=== PATIENT | female | born 1950 | race Caucasian/White ===

== ENCOUNTER → 2016-11-25 | Outpatient (CLI) | payer MEDICARE ==
[2016-11-25 09:58] LABS: ALBUMIN 3.7 GM/DL (3.2-5.2); ALBUMIN/GLOBULIN RATIO 1.32 (1.00-1.93); ALKALINE PHOSPHATASE 95 U/L (45-117); ALT/SGPT 26 U/L (12-78); ANION GAP 9 MEQ/L (8-16); AST/SGOT 14 U/L (15-37); BILIRUBIN,TOTAL 0.3 MG/DL (0.2-1.0); BLOOD UREA NITROGEN 16 MG/DL (7-18); CALCIUM LEVEL 8.9 MG/DL (8.8-10.2); CARBON DIOXIDE LEVEL 32 MEQ/L (21-32); CHLORIDE LEVEL 103 MEQ/L (98-107); CHOLESTEROL LEVEL 208 MG/DL (<200); FREE T4 1.03 NG/DL (0.76-1.46); GLOMERULAR FILTRATION RATE > 60.0 (>45); GLUCOSE, FASTING 125 MG/DL (80-110); POTASSIUM SERUM 3.8 MEQ/L (3.5-5.1); SODIUM LEVEL 144 MEQ/L (136-145); TOTAL PROTEIN 6.5 GM/DL (6.4-8.2); TRIGLYCERIDES LEVEL 153 MG/DL (<150)
== END ==
LOC: M WUC 08:07
PROVIDERS: ATTEND Emergency Medicine
DX: I10 Essential (primary) hypertension (principal); E78.2 Mixed hyperlipidemia; E03.9 Hypothyroidism, unspecified

== ENCOUNTER → 2016-11-27 | Outpatient (CLI) | payer MEDICARE | LOC: M WUC 10:12 | PROVIDERS: ATTEND Emergency Medicine | DX: R73.01 Impaired fasting glucose (principal) ==

== ENCOUNTER → 2017-02-10 | Outpatient (CLI) | payer MEDICARE ==
[~2017-02-10] VITALS: Ht 165.1 cm; Wt 96.2 kg
[~2017-02-10] MED LIST: ASPI1TAB PO; CALTCHW5 PO; CENT1TAB PO; LISI20TA PO; NS 1,000 ML IV SCH; PROPOFOL 200 MG/20 ML VIAL As Ordered ONE; VITA100037 PO; VITA500T3 PO
--- NOTE | 2017-02-10 08:49 | ROOR ---
Patient Name: Josey Martinez Procedure Date: 02/10/2017 8:00 AM Date of : 1950 Age: 66 Room: [facility] Gender: Female Note Status: Finalized Procedure: Colonoscopy Indications: Screening for colorectal malignant neoplasm Providers: Jordy Menjivar MD Referring MD: ROSA OMALLEY MD Requesting Provider: Medicines: Monitored Anesthesia Care Complications: No immediate complications. Procedure: Pre-Anesthesia Assessment: - Prior to the procedure, a History and Physical was performed, and patient medications and allergies were reviewed. The patient is competent. The risks and benefits of the procedure and the sedation options and risks were discussed with the patient. All questions were answered and informed consent was obtained. Patient identification and proposed procedure were verified by the physician, the nurse and the anesthesiologist in the endoscopy suite. Mental Status Examination: alert and oriented. Airway Examination: normal oropharyngeal airway and neck mobility. Respiratory Examination: clear to auscultation. CV Examination: normal. Prophylactic Antibiotics: The patient does not require prophylactic antibiotics. Prior Anticoagulants: The patient has taken aspirin, last dose was day of procedure. ASA Grade Assessment: II - A patient with mild systemic disease. After reviewing the risks and benefits, the patient was deemed in satisfactory condition to undergo the procedure. The anesthesia plan was to use monitored anesthesia care (MAC). Immediately prior to administration of medications, the patient was re-assessed for adequacy to receive sedatives. The heart rate, respiratory rate, oxygen saturations, blood pressure, adequacy of pulmonary ventilation, and response to care were monitored throughout the procedure. The physical status of the patient was re-assessed after the procedure. The Colonoscope was introduced through the anus and advanced to the cecum, identified by appendiceal orifice and ileocecal valve. The colonoscopy was technically difficult and complex due to multiple diverticula in the colon, poor bowel prep, restricted mobility of the colon and a tortuous colon. Successful completion of the procedure was aided by applying abdominal pressure. The patient tolerated the procedure well. The quality of the bowel preparation was adequate to identify polyps 6 mm and larger in size. Findings: The perianal and digital rectal examinations were normal. Multiple small and large-mouthed diverticula were found in the entire colon. There was no evidence of diverticular bleeding. A 5 to 7 mm polyp was found in the proximal transverse colon. The polyp was sessile. The polyp was removed with a hot snare. Resection and retrieval were complete. Estimated blood loss: none. No additional abnormalities were found on retroflexion. Impression: - Moderate diverticulosis in the entire examined colon. There was no evidence of diverticular bleeding. - One 5 to 7 mm polyp in the proximal transverse colon, removed with a hot snare. Resected and retrieved. Recommendation: - Discharge patient to home (ambulatory). - High fiber diet indefinitely. - Repeat colonoscopy in 5 years for surveillance. Jordy Menjivar MD Jordy Menjivar MD 02/10/2017 8:48:52 AM This report has been signed electronically. Number of Addenda: 0 Note Initiated On: 02/10/2017 8:00 AM Estimated Blood Loss: Estimated blood loss: none.
[2017-02-10 09:05] VITALS: BP 127/70
== END | disposition home or self-care (01) ==
LOC: M OPP 07:27
PROVIDERS: ATTEND Surgery
DX: Z12.11 Encounter for screening for malignant neoplasm of colon (principal); D12.3 Benign neoplasm of transverse colon; K57.30 Diverticulosis of large intestine without perforation or abscess without bleeding; I10 Essential (primary) hypertension; R23.3 Spontaneous ecchymoses; M19.90 Unspecified osteoarthritis, unspecified site; Z79.82 Long term (current) use of aspirin; Z79.899 Other long term (current) drug therapy; Z80.0 Family history of malignant neoplasm of digestive organs; Z87.891 Personal history of nicotine dependence

== ENCOUNTER → 2017-02-16 | Outpatient (REF) | payer MEDICARE ==
[~2017-02-16] MED LIST changes: -NS 1,000 ML IV SCH; -PROPOFOL 200 MG/20 ML VIAL As Ordered ONE
== END ==
LOC: M LAB REF 16:51
PROVIDERS: ATTEND Emergency Medicine
DX: N39.0 Urinary tract infection, site not specified (principal)

== ENCOUNTER → 2017-06-10 | Outpatient (CLI) | payer MEDICARE ==
[~2017-06-10] MED LIST changes: -VITA100037 PO; +VITA100067 PO
[2017-06-10 10:08] LABS: ALBUMIN 3.6 GM/DL (3.2-5.2); ALBUMIN/GLOBULIN RATIO 1.29 (1.00-1.93); ALKALINE PHOSPHATASE 87 U/L (45-117); ALT/SGPT 30 U/L (12-78); ANION GAP 10 MEQ/L (8-16); AST/SGOT 17 U/L (15-37); BILIRUBIN,TOTAL 0.4 MG/DL (0.2-1.0); BLOOD UREA NITROGEN 14 MG/DL (7-18); CALCIUM LEVEL 9.9 MG/DL (8.8-10.2); CARBON DIOXIDE LEVEL 28 MEQ/L (21-32); CHLORIDE LEVEL 106 MEQ/L (98-107); CHOLESTEROL LEVEL 200 MG/DL (<200); CREATININE FOR GFR 0.73 MG/DL (0.55-1.02); GLOMERULAR FILTRATION RATE > 60.0 (>45); GLUCOSE, FASTING 116 MG/DL (80-110); POTASSIUM SERUM 3.7 MEQ/L (3.5-5.1); SODIUM LEVEL 144 MEQ/L (136-145); TOTAL PROTEIN 6.4 GM/DL (6.4-8.2); TRIGLYCERIDES LEVEL 182 MG/DL (<150)
== END ==
LOC: M WUC 08:08
PROVIDERS: ATTEND Emergency Medicine
DX: E78.2 Mixed hyperlipidemia (principal); R73.01 Impaired fasting glucose; I10 Essential (primary) hypertension

== ENCOUNTER → 2018-02-09 | Outpatient (CLI) | payer MEDICARE ==
[2018-02-09 09:30] LABS: ALBUMIN 3.7 GM/DL (3.2-5.2); ALBUMIN/GLOBULIN RATIO 1.19 (1.00-1.93); ALKALINE PHOSPHATASE 95 U/L (45-117); ALT/SGPT 36 U/L (12-78); ANION GAP 8 MEQ/L (8-16); AST/SGOT 18 U/L (7-37); BILIRUBIN,TOTAL 0.4 MG/DL (0.2-1.0); BLOOD UREA NITROGEN 18 MG/DL (7-18); CALCIUM LEVEL 9.4 MG/DL (8.8-10.2); CARBON DIOXIDE LEVEL 28 MEQ/L (21-32); CHLORIDE LEVEL 106 MEQ/L (98-107); CHOLESTEROL LEVEL 213 MG/DL (<200); CREATININE FOR GFR 0.78 MG/DL (0.55-1.30); GLOMERULAR FILTRATION RATE > 60.0 (>45); GLUCOSE, FASTING 131 MG/DL (70-100); HDL CHOLESTEROL 60 MG/DL (>40); LDL CHOLESTEROL 127.6 MG/DL (<100); NON-HDL-C 153 MG/DL; POTASSIUM SERUM 4.1 MEQ/L (3.5-5.1); SODIUM LEVEL 142 MEQ/L (136-145); TOTAL PROTEIN 6.8 GM/DL (6.4-8.2); TRIGLYCERIDES LEVEL 127 MG/DL (<150)
[2018-02-09 10:03] LABS: ESTIMATED AVERAGE GLUCOSE 143 MG/DL (60-110); HEMOGLOBIN A1c 6.6 %
== END ==
LOC: M WUC 08:22
DX: I10 Essential (primary) hypertension (principal); E78.2 Mixed hyperlipidemia; R73.01 Impaired fasting glucose
CPT/HCPCS: 80053

== ENCOUNTER → 2018-07-01 | Outpatient (CLI) | payer MEDICARE | LOC: M WHC 08:59 | DX: Z12.31 Encounter for screening mammogram for malignant neoplasm of breast (principal) | CPT/HCPCS: 77067 ==

== ENCOUNTER → 2018-09-25 | Outpatient (CLI) | payer MEDICARE ==
[2018-09-25 15:07] LABS: BLOOD UREA NITROGEN 20 MG/DL (7-18); CALCIUM LEVEL 9.6 MG/DL (8.8-10.2); CARBON DIOXIDE LEVEL 27 MEQ/L (21-32); CHLORIDE LEVEL 103 MEQ/L (98-107); CHOLESTEROL LEVEL 220 MG/DL (<200); GLOMERULAR FILTRATION RATE > 60.0 (>45); GLUCOSE, FASTING 120 MG/DL (70-100); HDL CHOLESTEROL 53 MG/DL (>40); LDL CHOLESTEROL 136 MG/DL (<100); NON-HDL-C 167 MG/DL; POTASSIUM SERUM 4.2 MEQ/L (3.5-5.1); SODIUM LEVEL 139 MEQ/L (136-145); TRIGLYCERIDES LEVEL 155 MG/DL (<150)
[2018-09-25 15:17] LABS: HEMOGLOBIN A1c 7.3 %
== END ==
LOC: M WUC 08:07
PROVIDERS: ATTEND Physician Assistant Medical
DX: I10 Essential (primary) hypertension (principal); E11.9 Type 2 diabetes mellitus without complications; E78.2 Mixed hyperlipidemia

== ENCOUNTER → 2019-01-29 | Outpatient (CLI) | payer MEDICARE ==
[~2019-01-29] MED LIST changes: -ASPI1TAB PO; +ASPI81TA26 PO
[2019-01-29 18:22] LABS: ALBUMIN 3.7 GM/DL (3.2-5.2); ALT/SGPT 32 U/L (12-78); BILIRUBIN,TOTAL 0.4 MG/DL (0.2-1.0); BLOOD UREA NITROGEN 20 MG/DL (7-18); CALCIUM LEVEL 9.5 MG/DL (8.8-10.2); CARBON DIOXIDE LEVEL 30 MEQ/L (21-32); CHLORIDE LEVEL 105 MEQ/L (98-107); CHOLESTEROL LEVEL 155 MG/DL (<200); CHOLESTEROL RISK RATIO 3.039 (<5); CREATININE FOR GFR 0.89 MG/DL (0.55-1.30); GLOMERULAR FILTRATION RATE > 60.0 (>45); GLUCOSE, FASTING 134 MG/DL (70-100); HDL CHOLESTEROL 51 MG/DL (>40); LDL CHOLESTEROL 71 MG/DL (<100); NON-HDL-C 104 MG/DL; POTASSIUM SERUM 3.8 MEQ/L (3.5-5.1); SODIUM LEVEL 141 MEQ/L (136-145); TRIGLYCERIDES LEVEL 165 MG/DL (<150)
[2019-01-29 18:50] LABS: HEMOGLOBIN A1c 6.9 %
[2019-01-29 19:12] LABS: MALB URINE SIEMENS 29.7 MG/L; MAU/CREAT RATIO 10.8 MCG/MG (0.0-30.0)
== END ==
LOC: M WUC 08:03
PROVIDERS: ATTEND Physician Assistant Medical
DX: E11.9 Type 2 diabetes mellitus without complications (principal); E78.2 Mixed hyperlipidemia

== ENCOUNTER 2019-04-12 07:15 | Emergency (ER) | payer MEDICARE ==
[~2019-04-12] VITALS: Ht 165.1 cm; Wt 102.7 kg
[~2019-04-12 07:15] MED LIST changes: +CYAN500T8 PO; -LISI20TA PO; +LISI20TA18 PO; -VITA500T3 PO
[2019-04-12] MEDS ORDERED: ASPIRIN 81 MG CHEW TABLET PO ONE (07:45)
[2019-04-12] MEDS ORDERED: METF500T13 PO (07:48)
[2019-04-12] MEDS ORDERED: LISINOPRIL 20 MG TAB PO ONE (08:00)
[2019-04-12] MEDS ORDERED: NITROGLYCERIN 0.4 MG SUBL TABLET SL PRN (08:00)
[2019-04-12] MEDS ORDERED: hydroCHLOROthiazide 12.5 MG CAPSULE PO ONE (08:00)
[2019-04-12] MEDS ORDERED: CRAN450T4 PO (08:04)
[2019-04-12 08:10] VITALS: BP 199/96
[2019-04-12 08:28] LABS: BASO % 0.5 % (0.0-1.0); EOS # 0.2 10^3/uL (0.0-0.50); EOS % 1.9 % (0.0-3.0); HEMATOCRIT 41.5 % (36.0-47.0); HEMOGLOBIN 13.9 g/dl (12.0-15.5); LYMPH # 2.1 10^3/uL (1.5-4.5); LYMPH % 25.1 % (24.0-44.0); MEAN CORPUSCULAR HGB CONC 33.5 g/dl (32.0-36.5); MEAN CORPUSCULAR VOLUME 92.4 fl (80.0-96.0); MONO # 0.6 10^3/uL (0.0-0.8); MONO % 7.6 % (0.0-5.0); NEUTROPHILS # 5.5 10^3/uL (1.8-7.7); NEUTROPHILS % 64.4 % (36.0-66.0); PLATELET COUNT, AUTOMATED 336 10^3/uL (150-450); RED BLOOD COUNT 4.49 10^6/uL (4.00-5.40); WHITE BLOOD COUNT 8.5 10^3/uL (4.0-10.0)
[2019-04-12 08:47] LABS: BLOOD UREA NITROGEN 13 MG/DL (7-18); CALCIUM LEVEL 9.2 MG/DL (8.8-10.2); CARBON DIOXIDE LEVEL 30 MEQ/L (21-32); CHLORIDE LEVEL 105 MEQ/L (98-107); CK-MB VALUE MASS < 1.0 NG/ML (<3.6); CPK CREATINE PHOSPHOKINASE 123 U/L (26-192); CREATININE FOR GFR 0.84 MG/DL (0.55-1.30); GLOMERULAR FILTRATION RATE > 60.0 (>45); GLUCOSE, FASTING 135 MG/DL (70-100); MB/CK RELATIVE INDEX 0.81 (< OR =4); POTASSIUM SERUM 3.6 MEQ/L (3.5-5.1); SODIUM LEVEL 141 MEQ/L (136-145); TROPONIN I < 0.02 NG/ML (< 0.10)
[2019-04-12] MEDS ORDERED: ISOVUE-370 76% 100ML VIAL (Q9967) As Ordered ONE (09:01)
--- NOTE | 2019-04-12 11:13 | REP ---
CT ANGIOGRAM CHEST: TECHNIQUE: Axial contrast enhanced images from the thoracic inlet to the upper abdomen using 100 mL Isovue 370 intravenous contrast material with multiplanar reformations. There is no CT evidence of pulmonary embolism. There is no thoracic aortic aneurysm or dissection. There is mild to moderate atherosclerotic calcification of the thoracic aorta. The heart is not enlarged. There is no pleural or pericardial effusion. There is no mediastinal, hilar or chest wall lymphadenopathy. There is a large hiatal hernia. Diffuse fibrotic changes are seen in the lungs. Small bullae is seen in the left lower lobe inferiorly. In the visualized portions of the upper abdomen, note is made of a diffuse fatty infiltration of the liver. There are gallstones in the gallbladder without evidence of a gallbladder wall edema. There are degenerative changes of the spine. IMPRESSION: No CT evidence of pulmonary embolism or aortic dissection. No acute pulmonary disease with diffuse fibrotic changes. Large hiatal hernia. Gallstones in the gallbladder. Electronically Signed by Jurgen Valdez MD 04/12/2019 01:17 P
[2019-04-12 12:30] LABS: CK-MB VALUE MASS < 1.0 NG/ML (<3.6); CPK CREATINE PHOSPHOKINASE 130 U/L (26-192); MB/CK RELATIVE INDEX 0.77 (< OR =4); TROPONIN I < 0.02 NG/ML (< 0.10)
[2019-04-12 13:00] VITALS: BP 141/77
[2019-04-12] MEDS ORDERED: PROT1TAB2 PO (13:11)
[2019-04-12] MEDS ORDERED: CARA1TAB6 PO (13:11)
[2019-04-12] MEDS ORDERED: GI COCKTAIL 50ML BTL(HYOSCYAMINE/MAALOX/LIDOCAINE VISCOUS)(1:3:1) PO ONE (13:15)
--- NOTE | 2019-04-12 14:47 | REP ---
Portable chest, single AP view with the patient upright, 08:06 a.m.: Comparison is 02/01/2015. The lung blount are clear. The cardiac size is normal. The tee, mediastinum, and skeletal structures are unremarkable. Impression: Negative portable chest. Electronically Signed by Jurgen Beasley MD 04/12/2019 08:21 A
--- NOTE | 2019-04-12 20:33 | ECGEPIP ---
[facility] - ED Test Date: 2019-04-12 Pat Name: ZO JOHNS Department: Room: - Gender: Female Receiving Worker: ESTELA : 1950 Requested By: Adonis Kahn Order Number: [id number] Reading MD: Adonis Kimball Measurements Intervals [place] Rate: 68 P: 7 MS: 200 QRS: QRSD: 153 T: 19 QT: 416 QTc: 443 Interpretive Statements SINUS RHYTHM LEFT BUNDLE BRANCH BLOCK NO PRIORS FOR COMPARISON Electronically Signed on 04-12-2019 20:32:48 EDT by Adonis Kimball
--- NOTE | 2019-04-12 20:38 | ECGEPIP ---
[facility] - ED Test Date: 2019-04-12 Pat Name: ZO JOHNS Department: Room: - Gender: Female Service Station Operator: TC : 1950 Requested By: Adonis Kahn Order Number: [id number] Reading MD: Adonis Kimball Measurements Intervals [place] Rate: 70 P: 4 DE: 195 QRS: QRSD: 163 T: 114 QT: 451 QTc: 490 Interpretive Statements SINUS RHYTHM LEFT BUNDLE BRANCH BLOCK SIMILAR TO PRIOR ON SAME DATE Electronically Signed on 04-12-2019 20:38:37 EDT by Adonis Kimball
== END 2019-04-12 13:36 | disposition home or self-care (01) ==
LOC: M ED 07:15
DX: K44.9 Diaphragmatic hernia without obstruction or gangrene (principal); K20.9 Esophagitis, unspecified; R07.89 Other chest pain; I44.7 Left bundle-branch block, unspecified; K80.20 Calculus of gallbladder without cholecystitis without obstruction; I51.9 Heart disease, unspecified; I10 Essential (primary) hypertension; E78.5 Hyperlipidemia, unspecified; K21.9 Gastro-esophageal reflux disease without esophagitis; E66.9 Obesity, unspecified; Z79.82 Long term (current) use of aspirin; Z79.899 Other long term (current) drug therapy
CPT/HCPCS: 71045; 71275; 80048; 82550; 82553; 84484; 85025; 93005; 93041; 94760; 99285; Q9967

== ENCOUNTER → 2019-07-30 | Outpatient (CLI) | payer MEDICARE ==
[~2019-07-30] MED LIST changes: +CARA1TAB6 PO; +CRAN450T4 PO; -LISI20TA18 PO; +LISI20TA19 PO; +METF500T13 PO; +PROT1TAB2 PO
[2019-07-30 13:21] LABS: BLOOD UREA NITROGEN 18 MG/DL (7-18); CALCIUM LEVEL 9.2 MG/DL (8.8-10.2); CARBON DIOXIDE LEVEL 31 MEQ/L (21-32); CHLORIDE LEVEL 105 MEQ/L (98-107); CREATININE FOR GFR 0.93 MG/DL (0.55-1.30); GLOMERULAR FILTRATION RATE > 60.0 (>45); GLUCOSE, FASTING 137 MG/DL (70-100); POTASSIUM SERUM 4.3 MEQ/L (3.5-5.1); SODIUM LEVEL 142 MEQ/L (136-145)
[2019-07-30 13:40] LABS: HEMOGLOBIN A1c 7.1 %
== END ==
LOC: M WUC 08:01
PROVIDERS: ATTEND Physician Assistant Medical
DX: E11.9 Type 2 diabetes mellitus without complications (principal)

== ENCOUNTER → 2019-08-23 | Outpatient (CLI) | payer MEDICARE ==
[~2019-08-23] MED LIST changes: +ASPI81TA85 PO; +LISI20TA20 PO; +PANT40TA3 PO; +ROSU10TA6 PO; +VITA200028 PO
[2019-08-23 14:51] LABS: HEMOGLOBIN A1c 7.1 %
== END ==
LOC: M LAB 13:54
PROVIDERS: ATTEND Orthopaedic Surgery
DX: M21.41 Flat foot [pes planus] (acquired), right foot (principal); R73.09 Other abnormal glucose

== ENCOUNTER 2019-08-30 06:26 | Inpatient (IN) | payer MEDICARE ==
--- NOTE | 2019-08-29 15:07 | HPE ---
DATE OF ADMISSION: 08/30/2019 INDICATION: Right flatfoot deformity. HISTORY OF PRESENT ILLNESS: Josey Martinez is a 69-year-old female with longstanding foot pain due to a flat foot deformity. She has undergone extensive conservative treatment by Dr. Estrella. She has continued to have pain and limitation after she had a discussion about the risks and benefits of flap foot reconstruction, written informed consent was obtained. The patient has obtained her medical clearance from her primary care physician. PAST MEDICAL HISTORY: Past medical history is notable for hypertension, [id number] diabetes, anxiety and high cholesterol. PAST SURGICAL HISTORY: Hysterectomy, hernia repair, wrist surgery. ALLERGIES: NO KNOWN DRUG ALLERGIES. MEDICATIONS: - Protonix - rosuvastatin - metformin - Lisinopril - hydrochlorothiazide - triamcinolone - vitamin D - Xanax - low dose aspirin - multivitamin - Carafate SOCIAL HISTORY: The patient does not smoke, abuse alcohol or illicit drugs. She is retired. REVIEW OF SYSTEMS: The patient denied neurologic, cardiac, abdominal or respiratory symptoms. Musculoskeletal: She has pain and swelling in the right foot. PHYSICAL EXAMINATION: Physical exam reveals a middle-aged female in no distress. Alert and oriented times three. Neurologic: Appropriate mood and affect. Cardiovascular: 2+ dorsalis pedis pulse. Pulmonary: Nonlabored breathing. Skin: Skin of the right foot is intact without open lesions. Musculoskeletal: The patient has increased hindfoot valgus with positive too many toes sign. She has flat foot when viewed from the side. She has pain and weakness along the post tib tendon. RADIOGRAPHY: Consistent with flat foot. ASSESSMENT/PLAN: Josey Martinez is a 69-year-old female with a right flat foot deformity. Plan will be to move forward with right flat foot reconstruction by Dr. Megan Estrella on 08/30/2019. She will need to spend the night in the hospital.
[~2019-08-30] VITALS: Ht 165.1 cm; Wt 98.0 kg
[2019-08-30] VITALS (8 sets, daily range): BP systolic 125–130; BP diastolic 57–75
[2019-08-30] MEDS ORDERED: LR 1,000 ML IV ONE (07:00)
[2019-08-30] MEDS ORDERED: ceFAZolin SOD 2 GM in IV 1 EA IV ONE (07:00)
[2019-08-30] MEDS ORDERED: MIDAZOLAM INJ 2 MG/2 ML VIAL (J2250) As Ordered ONE ×2 (08:02→09:22)
[2019-08-30] MEDS ORDERED: fentaNYL 100 MCG/2 ML INJECTION (J3010) As Ordered ONE (08:02)
[2019-08-30] MEDS ORDERED: fentaNYL 250 MCG/5 ML INJECTION (J3010) As Ordered ONE (09:22)
[2019-08-30] MEDS ORDERED: dexameTHASONE 4 MG/ML 1ML VIAL (J1100) As Ordered ONE (09:22)
[2019-08-30] MEDS ORDERED: PROPOFOL 200 MG/20 ML VIAL As Ordered ONE (09:22)
[2019-08-30] MEDS ORDERED: LIDOCAINE 2% INJ 100 MG/5 ML SDV (FOR ANES.) As Ordered ONE (09:22)
[2019-08-30] MEDS ORDERED: ROCURONIUM BROMIDE 50 MG/5 ML VIAL As Ordered ONE (09:22)
[2019-08-30] MEDS ORDERED: ePHEDrine SULFATE 25 MG/5 ML(5MG/ML) SYRINGE As Ordered ONE (09:55)
[2019-08-30] MEDS ORDERED: BUPIVACAINE HCL 0.5% 30 ML VIAL As Ordered ONE (11:17)
[2019-08-30] MEDS ORDERED: ONDANSETRON 4MG/2ML VIAL (J2405) As Ordered ONE ×2 (11:18→12:39)
[2019-08-30] MEDS ORDERED: SUGAMMADEX SODIUM 500 MG/5 ML VIAL (BRIDION) As Ordered ONE (11:19)
--- NOTE | 2019-08-30 12:19 | REP ---
RIGHT FOOT: 10 views. HISTORY: Flatfoot. Intraoperative imaging. 2 minutes 7 seconds of fluoroscopy time is reported. FINDINGS: A sequence of 10 last image hold fluoroscopically obtained spot radiographs document calcaneal osteotomy and fixation procedure. Electronically Signed by Pool Harmon MD 08/30/2019 05:39 P
[2019-08-30] MEDS ORDERED: fentaNYL 100 MCG/2 ML INJECTION (J3010) IV ONE (12:30)
[2019-08-30] MEDS ORDERED: MIDAZOLAM INJ 2 MG/2 ML VIAL (J2250) IV ONE (12:30)
[2019-08-30] MEDS ORDERED: PERCOCET 5MG/325MG TAB As Ordered ONE (12:39)
[2019-08-30] MEDS ORDERED: LR 1,000 ML IV SCH (12:45)
[2019-08-30] MEDS: fentaNYL 100 MCG/2 ML INJECTION (J3010) IV PRN ×4 (12:45→13:20)
[2019-08-30] MEDS: oxyCODONE 5MG TAB PO PRN ×2 (12:45→13:24)
[2019-08-30] MEDS ORDERED: ONDANSETRON 4MG/2ML VIAL (J2405) IV PRN ×2 (12:45→13:46)
[2019-08-30] MEDS ORDERED: GLUCOSE 4 GM CHEW TABLET PO PRN (13:00)
[2019-08-30] MEDS ORDERED: GLUCAGON FOR INJ 1 MG VIAL (J1610) SC PRN (13:00)
[2019-08-30] MEDS ORDERED: DEXTROSE 50% 50 ML SYRINGE IV PRN (13:00)
[2019-08-30] MEDS ORDERED: dexameTHASONE 10 MG/1 ML VIAL PRES.FREE (J1100) ONE (13:32)
[2019-08-30] MEDS ORDERED: ROPIvacaine 0.5% 30 ML INJECTION (J2795 PER 1MG) ONE (13:32)
[2019-08-30] MEDS: LR 1,000 ML IV SCH ×2 (13:46→20:47)
[2019-08-30] MEDS ORDERED: ACETAMINOPHEN TAB 650MG DOSE (2X325MG) PO PRN (13:46)
[2019-08-30] MEDS ORDERED: FLEET ENEMA PR PRN (13:46)
[2019-08-30 13:54] LABS: BASO % 0.2 % (0.0-1.0); EOS % 0.2 % (0.0-3.0); HEMATOCRIT 40.9 % (36.0-47.0); HEMOGLOBIN 13.1 g/dl (12.0-15.5); LYMPH # 1.1 10^3/uL (1.5-5.0); LYMPH % 11.6 % (24.0-44.0); MEAN CORPUSCULAR HEMOGLOBIN 30.6 pg (27.0-33.0); MEAN CORPUSCULAR VOLUME 95.6 fl (80.0-96.0); MONO # 0.1 10^3/uL (0.0-0.8); MONO % 1.4 % (0.0-5.0); NEUTROPHILS # 8.3 10^3/uL (1.5-8.5); NEUTROPHILS % 85.9 % (36.0-66.0); PLATELET COUNT, AUTOMATED 318 10^3/uL (150-450); RED BLOOD COUNT 4.28 10^6/uL (4.00-5.40); WHITE BLOOD COUNT 9.6 10^3/uL (4.0-10.0)
--- NOTE | 2019-08-30 14:03 | CR ---
DATE OF CONSULTATION: 08/30/2019 REASON FOR CONSULTATION: Medical management of chronic illnesses. CHIEF COMPLAINT: Right flat foot HISTORY OF PRESENT ILLNESS: This 69-year-old female with known history of hypertension, dyslipidemia, diabetes, nicotine addiction, history of recurrent right T8 zoster, recurrent urinary tract infections, B12 deficiency, restless legs, vitamin D deficiency, obesity, left distal radius and ulnar open fracture surgically repaired by Dr. David in 2010, admitted under orthopedic services due to right flat foot surgery, medical management requested postoperatively, medical clearance was provided by her primary care provider. At this time, the patient has no acute issues. She has no new complaints. Denies chest pain, pressure, tightness, fever, chills, nausea, vomiting, diarrhea, abdominal pain, dysuria, urgency, frequency, upper or lower extremity weakness, abnormal rashes, lymph node swelling. She recently returned from [place] with some postnasal drip, but otherwise is not taking any medications for that. PAST MEDICAL HISTORY: 1. Hypertension. 2. Hyperlipidemia. 3. Venous insufficiency. 4. Nicotine addiction, quit 3 years ago. 5. Recurrent right T8 zoster. 6. Diabetes. 7. Recurrent urinary tract infection (UTI). 8. B12 deficiency. 9. Vitamin D deficiency. 10. Restless legs. 11. Obesity. 12. Left distal radius and ulnar open fracture, surgical repair. ALLERGIES: No known drug allergies. PAST MEDICAL HISTORY: 1. Tubal ligation. 2. Hernia repair times two. 3. Total abdominal hysterectomy. 4. Bilateral salpingo-oophorectomy. 5. Colonoscopy, normal by Dr. Garcia in June 2004. 6. Left ulnar nerve wrapping secondary to pain by Dr. David in 2011. SOCIAL HISTORY: Previously smoked cigarettes, one pack per day for 20 years, quit 3 years ago. Rarely drinks alcohol, may be three per month. 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 Lives with her , four children. FAMILY HISTORY: Mother at age 78 with hypertension. Father was an alcoholic and of alcohol related disease at 61 years old. Brother had pulmonary fibrosis. Younger brother of alcohol related issues, chronic alcoholic. HOME MEDICATIONS: - aspirin 81 mg daily - Lisinopril/hydrochlorothiazide 20/25 one tablet daily - metformin 500 mg twice a day - multivitamin one tablet daily - Protonix 40 mg daily - rosuvastatin 10 mg daily - vitamin D2 2000 units daily REVIEW OF SYSTEMS: As per history of present illness. 12-point system otherwise negative. PHYSICAL EXAMINATION: VITAL SIGNS: Temperature 97.9, pulse 91, respiratory rate 16, blood pressure 133/64, 94% on 3 liters nasal cannula. GENERAL: Awake, alert, oriented providing history. No respiratory distress. The patient has no use of respiratory accessory muscles. No jugular venous distention (JVD). No thyromegaly. No cervical lymphadenopathy. Edentulous. LUNGS: Clear to auscultation. No wheezing, rales or rhonchi. HEART: S1, S2. Sinus rhythm. No murmurs, rubs or gallops. ABDOMEN: Soft, nontender, nondistended. Obese abdomen. Positive bowel sounds times four quadrants. EXTREMITIES: No cyanosis or clubbing. The patient has chronic venous insufficiency. Postoperative left foot. SKIN: Warm, dry, well perfused. [place] in color. LABORATORY DATA: Pending. ASSESSMENT AND PLAN: 69-year-old female admitted for observation for: status post right flat foot deformity, status post reconstructive surgery by Dr. Estrella on 08/30/2019. postoperative management including dvt prophylaxis, activity, pain control, bowel regimen per orthopedicu surgery. PT/OT for home safety evaluation in AM. Hypertension. Currently controlled. May resume home dose of Lisinopril 20 mg daily with holding parameters. Dyslipidemia. Continue on Crestor 10 mg daily. Obesity complicating her care. Body Mass Index (BMI) of 36. Vitamin D deficiency. On supplemental 2000 units daily, multivitamin. Probable obstructive sleep apnea. Obstructive sleep apnea protocol. Previous history of smoking. Nebulizer treatments as needed. Type 2 diabetes. On consistent carbohydrate diet, sliding scale. Fingersticks before food and nightly. Deep vein thrombosis (DVT) prophylaxis and postoperative antibiotics per orthopedic surgery. MTDD
[2019-08-30] MEDS: ROSUVASTATIN 10 MG TAB (CRESTOR) PO SCH (15:30)
[2019-08-30] MEDS: VITAMIN D 1,000 INTERNATIONAL UNITS TABLET PO SCH (15:31)
[2019-08-30] MEDS: PANTOPRAZOLE 40MG TAB (PROTONIX) PO SCH (15:31)
[2019-08-30] MEDS: lisinopriL 20 MG TAB PO SCH (15:31)
[2019-08-30] MEDS: MULTIVITAMINS/MINERALS THERAP 1 TAB PO SCH (15:31)
[2019-08-30 15:50] LABS: HEMOGLOBIN A1c 7.7 %
[2019-08-30] MEDS: MORPHINE 2 MG/ML 1ML VIAL (J2270) IV PRN ×3 (16:28→22:59)
[2019-08-30 16:40] LABS: CREATININE FOR GFR 0.99 MG/DL (0.55-1.30); GLOMERULAR FILTRATION RATE 59.4 (>45); POTASSIUM SERUM 3.9 MEQ/L (3.5-5.1)
[2019-08-30 16:41] LABS: MAGNESIUM LEVEL 1.8 MG/DL (1.8-2.4); THYROID STIMULATING HORMONE 2.15 uIU/ML (0.358-3.740)
[2019-08-30] MEDS: HumaLOG INSULIN (NovoLOG) PER UNIT SC SCH (17:29)
[2019-08-30] MEDS: ceFAZolin SOD 2 GM in IV 1 EA IV SCH (17:56)
[2019-08-30] MEDS ORDERED: HumaLOG INSULIN (NovoLOG) PER UNIT SC SCH (21:00)
[2019-08-31 01:12] VITALS: O2SAT 91
[2019-08-31] MEDS: ceFAZolin SOD 2 GM in IV 1 EA IV SCH (01:23)
[2019-08-31] MEDS: MORPHINE 2 MG/ML 1ML VIAL (J2270) IV PRN (02:05)
[2019-08-31] MEDS ORDERED: NORCO, ANEXSIA 5/325MG TABLET (HYDROcodone/ACETAMINOPHEN) PO PRN (03:15)
[2019-08-31] MEDS: NORCO, ANEXSIA 5/325MG TABLET (HYDROcodone/ACETAMINOPHEN) PO PRN ×2 (05:23→10:37)
[2019-08-31 06:00] VITALS: BP 122/68
[2019-08-31 07:58] VITALS: BP 120/60
[2019-08-31] MEDS ORDERED: ASPI81TA85 PO (07:59)
[2019-08-31] MEDS ORDERED: metFORMIN (GLUCOPHAGE) 500 MG TAB PO SCH (08:00)
[2019-08-31] MEDS: HumaLOG INSULIN (NovoLOG) PER UNIT SC SCH ×2 (08:06→11:59)
[2019-08-31 09:00] VITALS: BP 120/60
[2019-08-31] MEDS: lisinopriL 20 MG TAB PO SCH (09:00)
[2019-08-31] MEDS ORDERED: ASPIRIN 81 MG ENTERIC TAB PO SCH (09:00)
[2019-08-31] MEDS: ROSUVASTATIN 10 MG TAB (CRESTOR) PO SCH (09:05)
[2019-08-31] MEDS: VITAMIN D 1,000 INTERNATIONAL UNITS TABLET PO SCH (09:05)
[2019-08-31] MEDS: PANTOPRAZOLE 40MG TAB (PROTONIX) PO SCH (09:05)
[2019-08-31] MEDS: MULTIVITAMINS/MINERALS THERAP 1 TAB PO SCH (09:06)
[2019-08-31] MEDS: LR 1,000 ML IV SCH (12:00)
--- NOTE | 2019-08-31 14:09 | IPN ---
DATE: 08/31/2019 The patient's pain is 3/10 while she is lying down in bed. No issues overnight. The patient was anxious to go home today. VITAL SIGNS: Temperature 97.6, pulse 81, respiratory rate 17, blood pressure 120/60, 93% on room air. GENERAL: Awake, alert, oriented times three, answering questions appropriately. No jugular venous distention (JVD). No thyromegaly. No cervical lymphadenopathy. LUNGS: Clear to auscultation. No wheezing, rales or rhonchi. HEART: S1, S2. Sinus rhythm. ABDOMEN: Obese, soft, nontender, nondistended. EXTREMITIES: No pitting edema. Left foot bandaged. Skin warm, dry, well perfused. [place] in color. Distal pulses with dorsalis pedis noted. White count 9.6, hemoglobin 13, hematocrit 40, platelet count 318. Sodium 140, potassium 3.9, chloride 105, bicarb 28, BUN 17, creatinine 0.9, glucose 119. A1c is 7.7, glucose 174, calcium 9, magnesium 1.8, TSH 2.15. ASSESSMENT/PLAN: This is a 69-year-old female with history of diabetes and hypertension, chronic venous insufficiency who is status post surgical correction of her left foot. Per orthopedic surgery the patient may be discharged home. Pain management, deep vein thrombosis (DVT) prophylaxis and activity per orthopedic surgery. The patient may resume all of her home medications on discharge today with outpatient followup with her primary care physician within one week of discharge. KIM
--- NOTE | 2019-09-06 14:32 | DSES ---
DATE OF ADMISSION: 08/30/2019 DATE OF DISCHARGE: 08/31/2019 ATTENDING PHYSICIAN: Dr. Megan Estrella ADMISSION DIAGNOSIS: Right flatfoot deformity. OTHER DIAGNOSES: Hypertension. Diabetes, non-insulin dependent. Anxiety. Hyperlipidemia. DISCHARGE DIAGNOSIS: Right flatfoot deformity status post flatfoot reconstruction. OPERATION PERFORMED: Right flatfoot reconstruction. HISTORY: This is a 69-year-old female patient with progressively worsening longstanding right foot pain due to flatfoot deformity who has failed conservative treatment and elected for right flatfoot reconstruction with Dr. Estrella. HOSPITAL COURSE: The patient was admitted on the day of surgery and underwent a right flatfoot reconstruction, which was uneventful. She did well in the postoperative period and her hospital course was without complications. She was seen by physical therapy and will remain non-weightbearing on the right lower extremity per Dr. Estrella's instruction. Her pain was controlled on the day of discharge and she will use aspirin for deep vein thrombosis (DVT) prophylaxis per protocol. She will resume her preoperative medications and diet along with oral pain medication for pain control. She was given instructions to include to include, but not limited to, wound monitoring and activity limitations. She will followup in our office with Dr. Estrella in 10-14 days for surgical followup. Please refer to the medical record for further details,
--- NOTE | 2019-09-07 21:47 | RO ---
DATE OF PROCEDURE: 08/30/2019 PREPROCEDURE DIAGNOSIS: Right adult-acquired flatfoot deformity. POSTPROCEDURE DIAGNOSIS: Right adult-acquired flatfoot deformity. PROCEDURE: 1. Debridement and excision posterior tibial tendon. 2. Right flexor digitorum longus transfer to the navicular. 3. Right medializing calcaneal osteotomy. SURGEON: Megan Estrella MD DOCUMENTATION IMPROVEMENT SPECIALIST: SAUD Patterson ANESTHESIA: ESTIMATED BLOOD LOSS: Approximately 50 mL. COMPLICATIONS: None. CONDITION: Stable to recovery. INDICATIONS: Josey Martinez is a 69-year-old female who has had longstanding pain and deformity due to right adult-acquired flatfoot deformity. She has failed conservative measures. Risks and benefits of surgery were discussed with the patient in detail and include but are not limited to infection, damage to nerves and blood vessels, continued pain and stiffness, need for additional procedures. Informed consent was obtained preoperatively. DESCRIPTION OF PROCEDURE: Patient was met in the preoperative holding area where her right lower extremity was marked as the correct operative site. She was then taken to the post-anesthesia care unit (PACU) where she had a popliteal nerve block. From there, the patient was taken to the operating room where she was placed in the supine position on the operating room table. Bony prominences were well padded. A sterile tourniquet was applied to the right upper thigh. A chlorhexidine scrub was done to the right lower extremity. The patient received antibiotics within 60 minutes prior to incision. The right lower extremity was then prepped and draped in the normal sterile fashion. An official time-out was held where the correct patient, operative site and operative procedure were verified. Esmarch was used to exsanguinate the leg and tourniquet was inflated to 275 mmHg. An incision was made medially from the region of the medial malleolus, extending over the medial midfoot and first metatarsal. Posterior tibial tendon was identified and found to be significantly enlarged and tendinotic. The majority of the tendon was excised leaving a small stump of tissue. It was sent to pathology Next, the FDL tendon was identified in the floor of the posterior tibial tendon sheath. It was isolated down to the knot of Yossi. Crossing vessels were coagulated. The tendon was cut, and then a #2-0 FiberWire was used to whipstitch the tendon ends. At this point, C-arm was used to identify the appropriate position for bony tunnel to pass the FDL tendon through. A K-wire was placed and when appropriate position was found, it was reamed with a 5 mm reamer, which was the size of the tendon. The tendon was then passed through the bone tunnel into the navicular. At the end of the case, it was secured with a combination of #2-0 and #2 FiberWire. The plantar aspect was also sewn to the small stump of posterior tibial tendon that was remaining. After the FDL tendon had been isolated, attention was turned to the lateral aspect of the heel. An incision was made over the lateral tuberosity. A periosteal elevator was used to debride soft tissue off the lateral calcaneus in the region of osteotomy. I then marked my osteotomy sites using two K-wires. This location was found to be appropriate on lateral C-arm. Following this, the osteotomy was made with a 40 mm saw. The heel was then translated medially approximately 8-10 mm. It was held in place with two K-wires and then two 4.5 mm cannulated screws were placed across the osteotomy site. Radiographs were done in lateral and Jacques heel views and found to be satisfactory. At this point, my attention was turned back to the FDL transfer where, as stated previously, it was secured with the foot in slight plantar flexion and inversion using #2-0 and #2 FiberWire. Following this, all wounds were irrigated and closed using #3-0 Vicryl and #3-0 nylon. A well--padded dressing was applied in addition to a well-padded splint. The patient was extubated and transferred to the recovery room in stable condition. PLAN: The patient will be non-weightbearing in her right lower extremity. She will need to be non-weightbearing for 6 weeks. She will return in 1-2 weeks for splint change and cast placement. She will be on aspirin for deep vein thrombosis (DVT) prophylaxis.
== END 2019-08-31 12:20 | disposition home or self-care (01) | DRG 502 ==
LOC: M OR 06:26 → EDSTATUS 09:30 → M MS5PR 13:45
PROVIDERS: ADMIT Orthopaedic Surgery; ATTEND Orthopaedic Surgery
PROC: 0QBL0ZZ Excision of Right Tarsal, Open Approach (ICD-10-PCS; 2019-08-30)
PROC: 0LXV0ZZ Transfer Right Foot Tendon, Open Approach (ICD-10-PCS; principal; 2019-08-30 08:30)
DX: M21.41 Flat foot [pes planus] (acquired), right foot (principal); I10 Essential (primary) hypertension; E11.9 Type 2 diabetes mellitus without complications; R41.9 Unspecified symptoms and signs involving cognitive functions and awareness; E78.2 Mixed hyperlipidemia; Z79.899 Other long term (current) drug therapy; Z87.891 Personal history of nicotine dependence; E55.9 Vitamin D deficiency, unspecified; G25.81 Restless legs syndrome; E66.9 Obesity, unspecified; Z79.82 Long term (current) use of aspirin; Z68.36 Body mass index [BMI] 36.0-36.9, adult; G47.33 Obstructive sleep apnea (adult) (pediatric)

== ENCOUNTER → 2020-02-18 | Outpatient (CLI) | payer MEDICARE ==
[2020-02-18 16:27] LABS: ALBUMIN 3.7 GM/DL (3.2-5.2); ALT/SGPT 34 U/L (12-78); BILIRUBIN,TOTAL 0.5 MG/DL (0.2-1.0); BLOOD UREA NITROGEN 20 MG/DL (7-18); CALCIUM LEVEL 9.2 MG/DL (8.8-10.2); CARBON DIOXIDE LEVEL 30 MEQ/L (21-32); CHLORIDE LEVEL 102 MEQ/L (98-107); CHOLESTEROL LEVEL 140 MG/DL (<200); CHOLESTEROL RISK RATIO 2.545 (<5); CREATININE FOR GFR 0.91 MG/DL (0.55-1.30); GLOMERULAR FILTRATION RATE > 60.0 (>45); GLUCOSE, FASTING 135 MG/DL (70-100); HDL CHOLESTEROL 55 MG/DL (>40); LDL CHOLESTEROL 54 MG/DL (<100); NON-HDL-C 85 MG/DL; SODIUM LEVEL 141 MEQ/L (136-145); TOTAL PROTEIN 7.1 GM/DL (6.4-8.2); TRIGLYCERIDES LEVEL 157 MG/DL (<150)
[2020-02-18 16:37] LABS: HEMOGLOBIN A1c 7.6 %
[2020-02-19 10:49] LABS: MALB URINE SIEMENS 39.3 MG/L; MAU/CREAT RATIO 23.3 MCG/MG (0.0-30.0)
== END ==
LOC: M WUC 08:07
PROVIDERS: ATTEND Physician Assistant

== ENCOUNTER → 2020-02-27 | Outpatient (CLI) | payer MEDICARE | LOC: M WUC 14:15 | PROVIDERS: ATTEND Orthopaedic Surgery | DX: M96.0 Pseudarthrosis after fusion or arthrodesis (principal) ==

== ENCOUNTER → 2020-06-02 | Outpatient (CLI) | payer MEDICARE ==
[~2020-06-02] MED LIST changes: -ASPI81TA85 PO; +ASPI81TA86 PO; -LISI20TA19 PO; +LISI20TA35 PO; +PANT40TA29 PO; -PANT40TA3 PO
[2020-06-02 18:27] LABS: ALBUMIN 3.8 GM/DL (3.2-5.2); ALT/SGPT 25 U/L (12-78); BILIRUBIN,TOTAL 0.5 MG/DL (0.2-1.0); BLOOD UREA NITROGEN 18 MG/DL (7-18); CALCIUM LEVEL 10.1 MG/DL (8.8-10.2); CARBON DIOXIDE LEVEL 31 MEQ/L (21-32); CHLORIDE LEVEL 103 MEQ/L (98-107); CREATININE FOR GFR 0.94 MG/DL (0.55-1.30); GLOMERULAR FILTRATION RATE > 60.0 (>45); GLUCOSE, FASTING 149 MG/DL (70-100); POTASSIUM SERUM 3.8 MEQ/L (3.5-5.1); SODIUM LEVEL 138 MEQ/L (136-145)
[2020-06-02 18:35] LABS: HEMOGLOBIN A1c 6.8 %
== END ==
LOC: M WUC 08:02
PROVIDERS: ATTEND Physician Assistant
DX: E11.9 Type 2 diabetes mellitus without complications (principal); I10 Essential (primary) hypertension

== ENCOUNTER → 2020-09-30 | Outpatient (REF) | payer MEDICARE ==
[~2020-09-30] MED LIST changes: +CYAN500T14 PO; -CYAN500T8 PO
[2020-09-30 15:48] LABS: HEMOGLOBIN A1c 6.9 %
== END ==
LOC: M WUC 15:03
PROVIDERS: ATTEND Physician Assistant Medical
DX: E11.9 Type 2 diabetes mellitus without complications (principal)

== ENCOUNTER → 2022-10-06 | Outpatient (CLI) | payer MEDICARE ==
[~2022-10-06] MED LIST changes: -LISI20TA20 PO; +LISI20TA37 PO
[2022-10-06 19:16] LABS: HEMOGLOBIN A1c 6.9 % (4.0-6.0)
== END ==
LOC: M WUC 11:45
PROVIDERS: ATTEND Nurse Practitioner Family
DX: E11.9 Type 2 diabetes mellitus without complications (principal); Z79.84 Long term (current) use of oral hypoglycemic drugs

== ENCOUNTER → 2023-12-28 | Outpatient (CLI) | payer MEDICARE ==
[2023-12-28 12:34] LABS: ALBUMIN 3.6 G/DL (3.2-5.2); ALKALINE PHOSPHATASE 102 U/L (46-116); ALT/SGPT 21 U/L (7.0-40); AST/SGOT 13 U/L (<34); BILIRUBIN,TOTAL 0.5 MG/DL (0.3-1.2); BLOOD UREA NITROGEN 21 MG/DL (9-23); CALCIUM LEVEL 9.5 MG/DL (8.3-10.6); CARBON DIOXIDE LEVEL 28 MMOL/L (20-31); CHLORIDE LEVEL 101 MMOL/L (98-107); CHOLESTEROL LEVEL 199 MG/DL (<200); CHOLESTEROL RISK RATIO 3.87 (<5); CREATININE FOR GFR 0.96 MG/DL (0.55-1.30); GLOMERULAR FILTRATION RATE > 60.0 (>39); GLUCOSE, FASTING 220 MG/DL (74-106); HDL CHOLESTEROL 51.3 MG/DL (>40); LDL CHOLESTEROL 107.3 MG/DL (<100); NON-HDL-C 147.7 MG/DL; POTASSIUM SERUM 3.8 MMOL/L (3.5-5.1); SODIUM LEVEL 137 MMOL/L (136-145); TOTAL PROTEIN 6.7 G/DL (5.7-8.2); TRIGLYCERIDES LEVEL 202 MG/DL (<150)
[2023-12-28 13:09] LABS: MAU/CREAT RATIO 5.9 MCG/MG (0.0-30.0)
== END ==
LOC: M WUC 08:05
PROVIDERS: ATTEND Nurse Practitioner Family
DX: E11.9 Type 2 diabetes mellitus without complications (principal); I10 Essential (primary) hypertension; E78.2 Mixed hyperlipidemia

== ENCOUNTER → 2024-05-01 | Outpatient (REF) | payer MEDICARE ==
[~2024-05-01] MED LIST changes: -ROSU10TA6 PO; +ROSU10TA61 PO
[2024-05-01 18:02] LABS: AMORPHOUS SEDIMENT LARGE (NEGATIVE); APPEARANCE, URINE TURBID (CLEAR); BACTERIA, URINE AUTO NEGATIVE (NEGATIVE); BILIRUBIN, URINE AUTO NEGATIVE (NEGATIVE); BLOOD, URINE BLOOD NEGATIVE (NEGATIVE); COLOR, URINE AMBER (YELLOW); GLUCOSE, URINE (UA) AUTO 3+ mg/dL (NEGATIVE); KETONE, URINE AUTO NEGATIVE (NEGATIVE); LEUKOCYTE ESTERASE, URINE AUTO TRACE (NEGATIVE); MUCUS, URINE SMALL (NEGATIVE); NITRITE, URINE AUTO NEGATIVE (NEGATIVE); PROTEIN, URINE AUTO NEGATIVE (NEGATIVE); RBC, URINE AUTO 1 /HPF (0-3); SPECIFIC GRAVITY URINE AUTO 1.026 (1.002-1.035); SQUAMOUS EPITHELIAL CELL UR AU 7 /HPF (0-6); WBC, URINE AUTO 6 /HPF (0-3)
== END ==
LOC: M LAB REF 17:21
PROVIDERS: ATTEND Registered Nurse
DX: R30.0 Dysuria (principal)

== ENCOUNTER → 2024-08-02 | Outpatient (CLI) | payer MEDICARE ==
[2024-08-02 13:21] LABS: BASO # 0.1 10^3/uL (0.0-0.2); BASO % 0.5 % (0.0-1.0); EOS # 0.2 10^3/uL (0.0-0.5); EOS % 2.1 % (0.0-3.0); HEMATOCRIT 44.3 % (36.0-47.0); HEMOGLOBIN 14.8 g/dl (12.0-15.5); LYMPH # 3.1 10^3/uL (1.5-5.0); LYMPH % 29.8 % (24.0-44.0); MEAN CORPUSCULAR HEMOGLOBIN 30.8 pg (27.0-33.0); MEAN CORPUSCULAR HGB CONC 33.4 g/dl (32.0-36.5); MEAN CORPUSCULAR VOLUME 92.3 fl (80.0-96.0); MONO # 0.8 10^3/uL (0.0-0.8); MONO % 7.2 % (2.0-8.0); NEUTROPHILS # 6.3 10^3/uL (1.5-8.5); PLATELET COUNT, AUTOMATED 408 10^3/uL (150-450); WHITE BLOOD COUNT 10.5 10^3/uL (4.0-10.0)
[2024-08-02 13:48] LABS: HEMOGLOBIN A1c 9.1 % (4.0-6.0)
[2024-08-02 13:53] LABS: CREATININE, URINE 164.3 MG/DL; MAU/CREAT RATIO 9.7 MCG/MG (0.0-30.0)
[2024-08-02 13:57] LABS: ALBUMIN 3.4 G/DL (3.2-5.2); ALKALINE PHOSPHATASE 107 U/L (35-104); ALT/SGPT 27 U/L (7.0-40); AST/SGOT 13 U/L (<34); BILIRUBIN,TOTAL 0.4 MG/DL (0.3-1.2); BLOOD UREA NITROGEN 18 MG/DL (9-23); CALCIUM LEVEL 9.8 MG/DL (8.3-10.6); CARBON DIOXIDE LEVEL 31 MMOL/L (20-31); CHLORIDE LEVEL 102 MMOL/L (98-107); CHOLESTEROL LEVEL 216 MG/DL (<200); CHOLESTEROL RISK RATIO 4.65 (<5); CREATININE FOR GFR 0.88 MG/DL (0.55-1.30); GLOMERULAR FILTRATION RATE > 60.0 (>39); GLUCOSE, FASTING 179 MG/DL (74-106); HDL CHOLESTEROL 46.4 MG/DL (>40); IRON (FE) 150 UG/DL (50-170); LDL CHOLESTEROL 125.2 MG/DL (<100); MAGNESIUM LEVEL 1.6 MG/DL (1.8-2.4); NON-HDL-C 169.6 MG/DL; POTASSIUM SERUM 3.8 MMOL/L (3.5-5.1); SODIUM LEVEL 139 MMOL/L (136-145); TOTAL IRON BINDING CAPACITY 341 UG/DL (250-425); TOTAL PROTEIN 7.2 G/DL (5.7-8.2); TRIGLYCERIDES LEVEL 222 MG/DL (<150)
[2024-08-02 13:58] LABS: THYROID STIMULATING HORMONE 2.936 uIU/ML (0.55-4.78)
[2024-08-02 13:59] LABS: FERRITIN 42.7 NG/ML (7.3-270.7); FREE T4 1.18 NG/DL (0.89-1.76)
== END ==
LOC: M WUC 11:03
PROVIDERS: ATTEND Nurse Practitioner Family
DX: R00.2 Palpitations (principal); E11.9 Type 2 diabetes mellitus without complications; E78.2 Mixed hyperlipidemia

== ENCOUNTER → 2024-10-20 | Outpatient (CLI) | payer MEDICARE ==
[2024-10-20 11:35] LABS: CHOLESTEROL RISK RATIO 2.88 (<5); HDL CHOLESTEROL 47.8 MG/DL (>40); LDL CHOLESTEROL 60.8 MG/DL (<100); NON-HDL-C 90.2 MG/DL
== END ==
LOC: M WUC 08:13
PROVIDERS: ATTEND Internal Medicine Cardiovascular Disease
DX: E78.2 Mixed hyperlipidemia (principal); I10 Essential (primary) hypertension; R06.02 Shortness of breath

== ENCOUNTER → 2025-01-26 | Outpatient (CLI) | payer MEDICARE ==
[2025-01-26 14:49] LABS: CALCIUM LEVEL 9.5 MG/DL (8.3-10.6); CREATININE FOR GFR 0.94 MG/DL (0.55-1.30); GLOMERULAR FILTRATION RATE 64.1 (>39); POTASSIUM SERUM 3.8 MMOL/L (3.5-5.1)
[2025-01-26 14:53] LABS: HEMOGLOBIN A1c 9.7 % (4.0-6.0)
== END ==
LOC: M WUC 12:54
PROVIDERS: ATTEND Nurse Practitioner Family
DX: E11.9 Type 2 diabetes mellitus without complications (principal); I10 Essential (primary) hypertension

== ENCOUNTER → 2025-05-02 | Outpatient (CLI) | payer MEDICARE ==
[2025-05-02 12:33] LABS: ESTIMATED AVERAGE GLUCOSE 275.0 MG/DL (60-110)
== END ==
LOC: M WUC 08:27
PROVIDERS: ATTEND Nurse Practitioner Family
DX: E11.9 Type 2 diabetes mellitus without complications (principal)

== ENCOUNTER → 2025-08-06 | Outpatient (CLI) | payer MEDICARE ==
[~2025-08-06] MED LIST changes: -ROSU10TA61 PO; +ROSU10TA90 PO
[2025-08-06 15:45] LABS: ESTIMATED AVERAGE GLUCOSE 200.0 MG/DL (60-110)
== END ==
LOC: M WUC 08:23
PROVIDERS: ATTEND Nurse Practitioner Family
DX: E11.9 Type 2 diabetes mellitus without complications (principal)

== ENCOUNTER → 2025-08-28 | Outpatient (CLI) | payer MEDICARE ==
[2025-08-28 14:04] LABS: ALT/SGPT 25.0 U/L (7.0-40); AST/SGOT 23.0 U/L (<34); CHOLESTEROL LEVEL 138.0 MG/DL (<200); CHOLESTEROL RISK RATIO 2.65 (<5); LDL CHOLESTEROL 41.1 MG/DL (<100); NON-HDL-C 86.1 MG/DL; TRIGLYCERIDES LEVEL 225.0 MG/DL (<150)
[2025-08-28 14:08] LABS: CPK CREATINE PHOSPHOKINASE 48.0 U/L (34-145)
== END ==
LOC: M WUC 09:05
PROVIDERS: ATTEND Nurse Practitioner Family
DX: R06.02 Shortness of breath (principal); E78.00 Pure hypercholesterolemia, unspecified